=== PATIENT | male | born 1970 | race Two or more races ===

== ENCOUNTER 2016-05-14 14:11 | Emergency (ER) | payer OTHER ==
[2016-05-14 14:24] VITALS: RESP 16
[2016-05-14] MEDS ORDERED: NS 1,000 ML IV ONE (14:30)
[2016-05-14] MEDS ORDERED: ONDANSETRON 4 MG/2 ML VIAL IVP ONE (14:30)
--- NOTE | 2016-05-14 14:30 | UCPHY ---
H & P Patient Type: New Chief Complaint Nursing Narrative: n/v/d Time Seen by Provider: 05/14/16 14:22 HPI/ROS: Chief complaint: Fevers, chills, nausea, vomiting, diarrhea, body aches HPI: 45-year-old male with no significant medical history presenting with 2 days of fever, chills, body aches, nausea vomiting and diarrhea. Patient states that he has had multiple episodes of loose to watery stools today and multiple episodes of vomiting. He has not been able to keep any fluids down. He has got diffuse body aches with some mild abdominal pain. No cough. Mild headache. Some subjective fevers and chills but has not taken his temperature at home. Denies any blood or melena. No chest pain or shortness of breath. His kids were sick a couple weeks ago but not recently. Denies any nausea other exposures. Has not had a flu shot this year. ROS: 10 point Review of Systems is negative except as noted in the HPI. Past medical history: None Medications: None Allergies: None Social history: Nonsmoker, occasional alcohol, no other recreational drug use. Physical exam: Gen: Awake, Alert, No Distress HEENT: Nose: no rhinorrhea Eyes: PERRLA, EOMI Mouth: Dry mucosa Neck: Supple, no JVD Chest: nontender, lungs clear to auscultation Heart: S1, S2 normal, no murmur Abd: Soft, mild generalized tenderness to deep palpation, no guarding, nonsurgical abdomen Back: no CVA tenderness, no midline tenderness Ext: no edema, non-tender Skin: no rash Neuro: CN II-XII intact, Sensation grossly intact, Strength 5/5 in bilateral upper and lower extremities - Personal History Current Tetanus/Diphtheria Vaccine: No - Medical/Surgical History Hx Asthma: No Hx Chronic Respiratory Disease: No Hx Diabetes: No Hx Cardiac Disease: No Hx Renal Disease: No Hx Cirrhosis: No Hx Alcoholism: No Hx HIV/AIDS: No Hx Splenectomy or Spleen Trauma: No Other PMH: denies - Family History Significant Family History: No pertinent family hx - Social History Smoking Status: Never smoked Constitutional: Initial Vital Signs Temperature (C) 37.3 C 05/14/16 14:18 Heart Rate 74 05/14/16 14:18 Respiratory Rate 16 05/14/16 14:18 Blood Pressure 147/71 H 05/14/16 14:18 O2 Sat (%) 98 05/14/16 14:18 O2 Delivery Mode Room Air Allergies/Adverse Reactions: No Known Allergies Allergy (Unverified 05/14/16 14:17) Home Medications: Medication Instructions Recorded NK [No Known Home Meds] 05/14/16 Medical Decision Making ED Course/Re-evaluation: This is a 45-year-old male presenting with generalized body aches, subjective fever, nausea vomiting diarrhea. All these constellation of symptoms are consistent with a flu-like illness. He was mildly dehydrated with some mild abdominal pain but certainly no focal tenderness. Will place an IV, obtain CBC and blood chemistry. Will give him some Zofran and IV fluids and reassess. Departure - Departure Disposition: Home, Routine, Self-Care Clinical Impression: Flu-like symptoms, Vomiting, Diarrhea Condition: Good Instructions: Acute Nausea and Vomiting (ED), Acute Diarrhea (ED), Viral Syndrome (ED) Additional Instructions: May alternate ibuprofen and acetaminophen for fevers, aches and pains. Make sure to drink plenty of fluids. You may take ondansetron as needed for nausea. Follow up with your primary care physician in 2-3 days if symptoms are not improving. Return to the emergency department for worsening abdominal pain, fevers, chills , uncontrolled nausea, vomiting, or any other concerns. - PQRS PQRS Measurement: NA
[2016-05-14 14:42] LABS: % IMMATURE GRANULYOCYTES 0.3 % (0.0-1.1); ABSOLUTE IMMATURE GRANULOCYTES 0.02 10^3/uL (0.00-0.10); ADD DIFF? NO; ADD MORPH? NO; ADD SCAN? NO; ATYPICAL LYMPHOCYTE FLAG 0 (0-99); FRAGMENT RBC FLAG 0 (0-99); HEMATOCRIT 49.8 % (40.0-51.0); HEMOGLOBIN 17.9 g/dL (13.7-17.5); LEFT SHIFT FLG 0 (0-99); LIPEMIA HEMOLYSIS FLAG 90 (0-99); MEAN CELL HEMOGLOBIN 30.3 pg (27.9-34.1); MEAN CELL HEMOGLOBIN CONCENTR. 35.9 g/dL (32.4-36.7); MEAN CELL VOLUME 84.3 fL (81.5-99.8); MEAN PLATELET VOLUME 9.7 fL (8.7-11.7); PLATELET CLUMPS FLAG 0 (0-99); PLATELET COUNT 164 10^3/uL (150-400); RED BLOOD CELL COUNT 5.91 10^6/uL (4.40-6.38)
[2016-05-14 14:58] LABS: ALANINE AMINOTRANSFERASE 27 IU/L (21-72); ALBUMIN 4.5 g/dL (3.5-5.0); ALKALINE PHOSPHATASE 77 IU/L (38-126); ANION GAP 14 mEq/L (8-16); ASPARTATE AMINOTRANSFERASE 32 IU/L (17-59); BILIRUBIN-CONJUGATED 0.3 mg/dL (0.0-0.5); BILIRUBIN-UNCONJUGATED 0.7 mg/dL (0.0-1.1); CALCIUM 9.4 mg/dL (8.5-10.4); CARBON DIOXIDE 23 mEq/l (22-31); CHLORIDE 103 mEq/L (97-110); GLOMERULAR FILTRATION RATE > 60; GLUCOSE 105 mg/dL (70-100); POTASSIUM 3.2 mEq/L (3.5-5.2); SODIUM 140 mEq/L (134-144); TOTAL PROTEIN 8.1 g/dL (6.3-8.2)
[2016-05-14 16:08] VITALS: BP 128/78; PULSE 68; TEMP 99; O2SAT 96
== END 2016-05-14 16:08 | disposition home or self-care (01) ==
LOC: CED 14:11
DX: J11.1 Influenza due to unidentified influenza virus with other respiratory manifestations (principal)
CPT/HCPCS: 80048-PO; 80076-PO; 83690-PO; 85025-PO; 96361-PO; 96374-PO; G0463-PO; J2405